=== PATIENT | female | born 1985 | race Caucasian/White ===

== ENCOUNTER 2019-02-04 01:22 | Emergency (ER) | payer SELFPAY ==
[~2019-02-04] VITALS: Ht 172.7 cm; Wt 81.8 kg
[2019-02-04 01:28] VITALS: Ht 172.7 cm; Wt 81.8 kg
[2019-02-04 02:21] VITALS: BP 105/77; PULSE 73; RESP 12
--- NOTE | 2019-02-04 02:25 | ERD ---
ER Documentation Chief Complaint Chief Complaint been drinking etoh, glf 30 min ago, sustained lac right eyebrow. no ko HPI This is a 33-year-old female who presents for mechanical fall, while being intoxicated with alcohol. Happened 30 minutes ago, she sustained a laceration to her right eyebrow, she did not have loss of consciousness. She had no vomiting, she has not had any confusion, no altered mental state, she denies any neck pain. She presents with her , who had not been drinking. ROS All systems reviewed and are negative except as per history of present illness. Allergies Allergies: Coded Allergies: No Known Drug Allergies (Verified Allergy, Unknown, 02/04/19) PMhx/Soc Medical and Surgical Hx: pt denies Medical Hx, pt denies Surgical Hx Hx Alcohol Use: No Hx Substance Use: No Hx Tobacco Use: No Smoking Status: Never smoker Physical Exam Vitals Vital Signs Date Temp Pulse Resp B/P (MAP) Pulse Ox O2 O2 Flow FiO2 Time Delivery Rate 02/04/19 97.6 89 20 120/81 99 Room Air 01:37 (94) 02/04/19 97.6 112 20 111/80 99 01:28 (90) Physical Exam Const: Well-developed, well-nourished, intoxicated with EtOH. Head: There is a large 6 cm transverse laceration above the right eyebrow, there are no notable foreign bodies, there are no evidence of any ocular injuries, no scalp hematoma Eyes: Normal Conjunctiva ENT: Normal External Ears, Nose and Mouth. Neck: Full range of motion. No meningismus. No midline tenderness Resp: Clear to auscultation bilaterally Cardio: Regular rate and rhythm, no murmurs Abd: Soft, non tender, non distended. Normal bowel sounds Skin: No petechiae or rashes Back: No midline or flank tenderness Ext: No cyanosis, or edema Neur: Awake and alert Psych: Normal Mood and Affect Procedures/MDM This 33-year-old female presents ration of mechanical fall sustaining a la ceration to her right eyebrow. Patient states that she has had tetanus within the last 5 years, she refused to have sutures placed, which I recommended, and thus she her laceration was repaired with Dermabond. Given that she is intoxicated with alcohol, I recommended CT imaging to rule out intracranial hemorrhage. Patient declined this, and her was at the bedside, and wi shed to have her discharged AGAINST MEDICAL ADVICE. I explained that although she had no loss of consciousness, and no other abnormal behavior, aside from being intoxicated with alcohol, no vomiting, she is at low risk for intracranial hemorrhage, but given she is intoxicated, I cannot rule this out quickly and recommended a CT brain. He understood these risks, and stated that he would take her home, and observe for there, and would bring her back, if there are any neurologic changes. He understood the risks of taking at home, including, , permanent disability, and worsening symptoms. Regarding her laceration, I recommended that when she is clinically sober, if she desires she can be reevaluated, as cosmetically, I feel that sutures would be preferable. The patient stated that she would consider this in the morning, at discharge patient was ambulatory, with a steady gait and in no distress. Departure Diagnosis: Primary Impression: Laceration Additional Impression: Alcohol intoxication Complication of substance-induced condition: uncomplicated Qualified Codes: F10.920 - Alcohol use, unspecified with intoxication, uncomplicated Condition: Stable Patient Instructions: Laceration, Face (Skin Glue) Additional Instructions: Call your primary care doctor TOMORROW for an appointment during the next 2-3 days.See the doctor sooner or return here if your condition worsens before your appointment time. YU REDDY MD Feb 04, 2019 02:25
== END 2019-02-04 02:21 | disposition left against medical advice (07) ==
LOC: E/R 01:22
DX: S01.111A Laceration without foreign body of right eyelid and periocular area, initial encounter (principal); F10.920 Alcohol use, unspecified with intoxication, uncomplicated; W18.39XA Other fall on same level, initial encounter; Y92.9 Unspecified place or not applicable